=== PATIENT | female | born 1965 | race Caucasian/White ===

== ENCOUNTER 2017-04-21 18:50 | Emergency (ER) | payer OTHER ==
[2017-04-21 19:33] VITALS: BP 128/58; PULSE 87; RESP 20; TEMP 98.3
[2017-04-21] MEDS ORDERED: AMOXIC-POT CLAV 875MG STARTER 2 EACH TABLET PO STA (20:17)
[2017-04-21] MEDS ORDERED: CIPROFLOXACIN 0.3% OPHTH SOLN 5 ML BTL RIGHT EAR STA (20:22)
--- NOTE | 2017-04-21 20:23 | ED ---
ENT HPI - General Chief complaint: ENT Stated complaint: Blood in ear Time Seen by Provider: 04/21/17 19:57 Source: patient, RN notes reviewed, old records reviewed Mode of arrival: ambulatory Limitations: no limitations - History of Present Illness Initial comments: This patient is a 51-year-old female presents with one day of blood coming from her right ear canal. She reports a few days prior she was having your fullness in pain. You were so she has chronic your infections. She states that she felt a popping sensation in her ear and has noticed the drainage. Patient reports that she has ringing in her ears. She denies any trauma.Any fever or chills, she denies any neck pain, photophobia, chest pain, shortness of breath, nausea or vomiting. - Related Data Previous Rx's Medication Instructions Recorded Amoxic-Pot Clav 875-125Mg 1 tab PO Q12HR #20 tablet 04/21/17 [Augmentin 875-125] Ciprofloxacin Ophth Soln [Cipro 10 drops RIGHT EAR BID #1 bottle 04/21/17 Ophth Soln] Allergies Allergy/AdvReac Type Severity Reaction Status Date / Time No Known Allergies Allergy Verified 04/21/17 19:33 Review of Systems ROS Statement: Those systems with pertinent positive or pertinent negative responses have been documented in the HPI. ROS Other: All systems not noted in ROS Statement are negative. Past Medical History Additional Past Medical History / Comment(s): ovarian cyst Past Surgical History: Hysterectomy Past Psychological History: No Psychological Hx Reported Smoking Status: Current every day smoker Past Alcohol Use History: None Reported Past Drug Use History: None Reported General Exam - General Exam Comments Initial Comments: This is an alert and oriented, well appearing 51 year old female. No distress. Limitations: no limitations General appearance: alert, in no apparent distress Head exam: Present: atraumatic, normocephalic, normal inspection ENT exam: Present: normal exam, mucous membranes moist. Absent: TM's normal bilaterally (Patient has blood in right ear canal. Evidence of TM perforation. ) Neck exam: Present: normal inspection. Absent: tenderness, meningismus, lymphadenopathy Respiratory exam: Present: normal lung sounds bilaterally. Absent: respiratory distress, wheezes, rales, rhonchi, stridor Cardiovascular Exam: Present: regular rate, normal rhythm, normal heart sounds. Absent: systolic murmur, diastolic murmur, rubs, gallop, clicks GI/Abdominal exam: Present: soft, normal bowel sounds. Absent: distended, tenderness, guarding, rebound, rigid Extremities exam: Present: normal inspection, full ROM, normal capillary refill. Absent: tenderness, pedal edema, joint swelling, calf tenderness Back exam: Present: normal inspection Neurological exam: Present: alert, oriented X3, CN II-XII intact Psychiatric exam: Present: normal affect, normal mood Skin exam: Present: warm, dry, intact, normal color. Absent: rash Course Vital Signs 04/21/17 19:29 Temperature 98.3 F Pulse Rate 87 Respiratory 20 Rate Blood Pressure 128/58 O2 Sat by Pulse 98 Oximetry Medical Decision Making - Medical Decision Making Patient is a 51-year-old female chief complaint of bleeding through her right ear canal. Patient has evidence of a perforated eardrum. She reports a few days prior she was having your full list. She has a popping sensation last night and is now at drainage and blood. She reports ringing in her ears. No meningeal signs, no fevers vital signs are all within normal limits. She has no other symptoms at this time. Patient will be started on anabiotic eardrops, as well as augmentin. Discussed she needs to follow up with ENT specialist in 24-48 hours. All questions are answered return parameters were discussed. Disposition Clinical Impression: Rupture of right tympanic membrane Disposition: HOME SELF-CARE Condition: Good Instructions: Earache (ED) Additional Instructions: Patient advised to take antibiotics as prescribed. Follow-up with your primary care doctor as well as hot mill shearer tomorrow morning. Return to the emergency department if any alarming signs or symptoms occur. Prescriptions: Amoxic-Pot Clav 875-125Mg [Augmentin 875-125] 1 tab PO Q12HR #20 tablet Ciprofloxacin Ophth Soln [Cipro Ophth Soln] 10 drops RIGHT EAR BID #1 bottle Referrals: None,Stated [Primary Care Provider] - 1-2 days Perez Burks MD [STAFF PHYSICIAN] - 1-2 days Time of Disposition: 20:20
== END 2017-04-21 21:05 | disposition home or self-care (01) ==
LOC: EC 18:50
DX: H72.91 Unspecified perforation of tympanic membrane, right ear (principal); F17.200 Nicotine dependence, unspecified, uncomplicated
CPT/HCPCS: 99283

== ENCOUNTER 2024-05-08 19:07 | Observation (INO) | payer BC ==
--- NOTE | 2024-05-08 19:33 | ED ---
Psych HPI - General Source: patient, family, RN notes reviewed Mode of arrival: ambulatory Limitations: no limitations - History of Present Illness MD Complaint: suicidal ideation <Wilfredo Guillory - Last Filed: 05/08/24 20:08> <Simon Carrillo - Last Filed: 05/09/24 06:37> - General Source: patient, family, RN notes reviewed, old records reviewed <Santana Ferraro - Last Filed: 05/09/24 15:29> - General Stated Complaint: Mental Health Time Seen by Provider: 05/08/24 19:18 - History of Present Illness Initial Comments: Quick note: This is a 58-year-old female with history of depression presenting for suicidal ideation x 6 days. Patient endorses increased number of life stressors, causing her to feel overwhelmed. Patient called family notifying them of her situation. Patient states she has plan to slit her wrist. Patient denies attempted overdose of her medications. [facility] in [place], [place] has a list of her medications which they will fax over upon request. Denies homicidal ideation. (Wilfredo Guillory) Patient is a 58-year-old female presents emergency department for suicidal ideations, psychiatric evaluation. States since last she has been feeling more suicidal secondary to stressors at home. Plan was to slit her wrist with a razor blade. Has a history of headaches, COPD. Denies any fevers, chills but does endorse a cough for 1 week. No known sick contacts. No nausea or vomiting. No diarrhea. Presents for further evaluation at this time. Has no other acute complaints. Originally seen as a quick note. I originally evaluated patient in the waiting room and then and room 14. (Santana Ferraro) - Related Data Home Medications Medication Instructions Recorded Confirmed Atorvastatin [Lipitor] 20 mg PO DAILY 05/08/24 05/08/24 Cetirizine HCl [Zyrtec] 10 mg PO DAILY 05/08/24 05/08/24 EPINEPHrine (Auto Inject) [Epipen] 0.3 mg IM ONCE PRN 05/08/24 05/08/24 Fluticasone/Umeclidin/Vilanter 1 puff INHALATION RT-DAILY 05/08/24 05/08/24 [Trelegy Ellipta 200-62.5-25] Magnesium 250 mg PO HS 05/08/24 05/08/24 Pantoprazole [Protonix] 40 mg PO DAILY 05/08/24 05/08/24 Rizatriptan Benzoate 10 mg PO BID PRN 05/08/24 05/08/24 Topiramate 50 mg PO BID 05/08/24 05/08/24 Allergies Allergy/AdvReac Type Severity Reaction Status Date / Time bee venom protein (honey bee) Allergy Anaphylaxis Verified 05/08/24 20:46 metoclopramide [From Reglan] Allergy Unknown Verified 05/08/24 20:46 peanut Allergy Anaphylaxis Verified 05/08/24 20:46 Review of Systems ROS Other: All systems not noted in ROS Statement are negative. <Wilfredo Guillory - Last Filed: 05/08/24 20:08> ROS Other: All systems not noted in ROS Statement are negative. <Simon Carrillo - Last Filed: 05/09/24 06:37> ROS Other: All systems not noted in ROS Statement are negative. <Santana Ferraro - Last Filed: 05/09/24 15:29> ROS Statement: Those systems with pertinent positive or pertinent negative responses have been documented in the HPI. Review of Systems: CONST: Denies fever EYES: Denies blurry vision ENT: Denies nasal congestion C/V: Denies Chest pain RESP: Denies shortness of breath GI: Denies abdominal pain : Denies dysuria SKIN: Denies rash. MSK: Denies joint pain. NEURO: Denies headache (Santana Ferraro) Past Medical History Additional Past Medical History / Comment(s): ovarian cyst Past Surgical History: Hysterectomy Past Psychological History: No Psychological Hx Reported Past Alcohol Use History: None Reported Past Drug Use History: None Reported <Wilfredo Guillory - Last Filed: 05/08/24 20:08> General Exam General appearance: alert, in no apparent distress Head exam: Present: atraumatic, normocephalic, normal inspection Eye exam: Present: normal appearance, PERRL, EOMI. Absent: scleral icterus, conjunctival injection, periorbital swelling ENT exam: Present: normal exam, mucous membranes moist Neck exam: Present: normal inspection. Absent: tenderness, meningismus, lymphadenopathy Respiratory exam: Present: normal lung sounds bilaterally. Absent: respiratory distress, wheezes, rales, rhonchi, stridor Cardiovascular Exam: Present: regular rate, normal rhythm, normal heart sounds. Absent: systolic murmur, diastolic murmur, rubs, gallop, clicks GI/Abdominal exam: Present: soft, normal bowel sounds. Absent: distended, tenderness, guarding, rebound, rigid Extremities exam: Present: normal inspection, full ROM, normal capillary refill. Absent: tenderness, pedal edema, joint swelling, calf tenderness Back exam: Present: normal inspection Neurological exam: Present: alert, oriented X3, CN II-XII intact Psychiatric exam: Present: normal affect, normal mood Skin exam: Present: warm, dry, intact, normal color. Absent: rash <Wilfredo Guilolry - Last Filed: 05/08/24 20:08> <Santana Ferraro - Last Filed: 05/09/24 15:29> - General Exam Comments Initial Comments: Visual Physical Exam Vital signs reviewed General: Well-appearing, nontoxic, no acute distress. Head: Normocephalic, atraumatic Eyes: PERRLA, EOMI ENT: Airway patent Chest: Nonlabored breathing Skin: No visual rash, normal skin tone Neuro: Alert and oriented 3 Musculoskeletal: No gross abnormalities (Wilfredo Guillory) General: Appears in no acute distress. HEAD: Normal with no signs of head trauma. EYES: EOMI ENT: Hearing grossly intact, normal oropharynx. RESPIRATORY: Clear breath sounds bilaterally. No hypoxia. No wheezing. C/V: Regular rate and rhythm. S1 and S2 auscultated, peripheral pulses 2+ and intact throughout ABD: Abd is soft, nontender, nondistended EXT: No obvious deformity SKIN: No rashes or lesions observed on exposed skin. NEURO: Alert and oriented x 4. (Santana Ferraro) Course Vital Signs 05/08/24 05/09/24 05/09/24 19:32 06:56 08:39 Temperature 98.5 F 98.2 F Pulse Rate 92 88 88 Respiratory 18 18 18 Rate Blood Pressure 108/70 110/62 99/59 O2 Sat by Pulse 98 98 96 Oximetry 05/09/24 15:27 Temperature 98.7 F Pulse Rate 84 Respiratory 18 Rate Blood Pressure 118/75 O2 Sat by Pulse 98 Oximetry Medical Decision Making <Wilfredo Guillory - Last Filed: 05/08/24 20:08> - Lab Data Result diagrams: 05/08/24 20:45 05/08/24 20:45 <Simon Carrillo - Last Filed: 05/09/24 06:37> - Lab Data Result diagrams: 05/08/24 20:45 05/08/24 20:45 - EKG Data -: EKG Interpreted by Me <Santana Ferraro - Last Filed: 05/09/24 15:29> - Medical Decision Making I completed the quick note portion of this chart signed MAREN Rabago (Wilfredo Guillory) Was pt. sent in by a medical professional or institution ([facility], [facility], urgent care, hospital, or [facility]...) When possible be specific @ -No Did you speak to anyone other than the patient for history (EMS, parent, family, police, friend...)? What history was obtained from this source @ -Spoke with family who endorses patient's story. Did you review nursing and triage notes (agree or disagree)? Why? @ -I reviewed and agree with nursing and triage notes Were old charts reviewed (outside hosp., previous admission, EMS record, old EKG, old radiological studies, urgent care reports/EKG's, [facility] records)? Report findings @ -No old charts were reviewed Differential Diagnosis (chest pain, altered mental status, abdominal pain women, abdominal pain men, vaginal bleeding, weakness, fever, dyspnea, syncope, headache, dizziness, GI bleed, back pain, seizure, CVA, palpatations, mental health, musculoskeletal)? @ -Differential Mental Health Depression, anxiety, bipolar, psychosis, schizophrenia, borderline personality, situational depression, adjustment disorder, behavioral disorder, brain tumor, malingering, substance abuse, encephalopathy, medication reaction, dementia, hypothyroidism, degenerative neurologic disorder, lupus.... This is not meant to be all-inclusive list EKG interpreted by me (3pts min.). @ -As above X-rays interpreted by me (1pt min.). @ -None done CT interpreted by me (1pt min.). @ -None done U/S interpreted by me (1pt. min.). @ -None done What testing was considered but not performed or refused? (CT, X-rays, U/S, labs)? Why? @ -None What meds were considered but not given or refused? Why? @ -None Did you discuss the management of the patient with other professionals (professionals i.e. , PA, SKIDDER LOADER, lab, RT, psych nurse, social media manager, optical instrument assembly supervisor, teacher, unclaimed property officer, director of casework services)? Give summary @ -EPS notified of the consult Was smoking cessation discussed for >3mins.? @ -No Was critical care preformed (if so, how long)? @ -No Were there social determinants of health that impacted care today? How? (Homelessness, low income, unemployed, alcoholism, drug addiction, transportation, low edu. Level, literacy, decrease access to med. care, residential, rehab)? @ -No Was there de-escalation of care discussed even if they declined (Discuss DNR or withdrawal of care, Hospice)? DNR status @ -No What co-morbidities impacted this encounter? (DM, HTN, Smoking, COPD, CAD, Cancer, CVA, ARF, Chemo, Hep., AIDS, mental health diagnosis, sleep apnea, morbid obesity)? @ -None Was patient admitted / discharged? Hospital course, mention meds given and route, prescriptions, significant lab abnormalities, going to OR and other pertinent info. @ -Patient presents emergency department for mental health evaluation. Patient is suicidal. Suicide precautions placed. We have obtained basic labs and screening EKG to the patient's age. She was in agreement this plan. Vital signs are within acceptable limits. Laboratory studies remarkable for positive influenza test. Negative COVID. Alcohol level is undetectable. UDS unremarkable. EKG shows no signs of acute ischemia. At this time, patient is medically cleared for evaluation by psychiatry. Disposition is pending psychiatric evaluation. EPS notified the consult. Patient is in room 14 at this time. Patient and family in agreement this plan. Patient evaluated by EPS and determined that she does meet inpatient criteria, however as the patient is influenza positive she requires transfer to another facility. Patient petitioned by EPS and clinical certificate completed by myself. Patient awaiting transfer. It appears patient after my shift was eventually, rather than be transferred to inpatient psychiatry, was admitted to the medical admission to our hospital with psychiatric consult. Undiagnosed new problem with uncertain prognosis? @ -No Drug Therapy requiring intensive monitoring for toxicity (Heparin, Nitro, Insulin, Cardizem)? @ -No Were any procedures done? @ -No Diagnosis/symptom? @ -Suicidal ideation with plan, influenza A positive Acute, or Chronic, or Acute on Chronic? @ -Acute Uncomplicated (without systemic symptoms) or Complicated (systemic symptoms)? @ -Complicated Side effects of treatment? @ -None Exacerbation, Progression, or Severe Exacerbation] @ -No Poses a threat to life or bodily function? @ -Potentially, yes (Santana Ferraro) - Lab Data Lab Results 05/08/24 05/08/24 05/08/24 Range/Units 19:39 19:39 19:39 WBC (3.8-10.6) k/uL RBC (3.80-5.40) m/uL Hgb (11.4-16.0) gm/dL Hct (34.0-46.0) % MCV (80.0-100.0) fL MCH (25.0-35.0) pg MCHC (31.0-37.0) g/dL RDW (11.5-15.5) % Plt Count (150-450) k/uL MPV Neutrophils % % Lymphocytes % % Monocytes % % Eosinophils % % Basophils % % Neutrophils # (1.3-7.7) k/uL Lymphocytes # (1.0-4.8) k/uL Monocytes # (0-1.0) k/uL Eosinophils # (0-0.7) k/uL Basophils # (0-0.2) k/uL Sodium (137-145) mmol/L Potassium (3.5-5.1) mmol/L Chloride (98-107) mmol/L Carbon Dioxide (22-30) mmol/L Anion Gap mmol/L BUN (7-17) mg/dL Creatinine (0.52-1.04) mg/dL Est GFR (CKD-EPI)AfAm (>60 ml/min/1.73 sqM) Est GFR (CKD-EPI)NonAf (>60 ml/min/1.73 sqM) Glucose (74-99) mg/dL Calcium (8.4-10.2) mg/dL Total Bilirubin (0.2-1.3) mg/dL AST (14-36) U/L ALT (4-34) U/L Alkaline Phosphatase (38-126) U/L Total Protein (6.3-8.2) g/dL Albumin (3.5-5.0) g/dL Urine Color Yellow Urine Appearance Cloudy H (Clear) Urine pH 5.5 (5.0-8.0) Ur Specific [place] 1.017 (1.001-1.035) Urine Protein Negative (Negative) Urine Glucose (UA) Negative (Negative) Urine Ketones Negative (Negative) Urine Blood Negative (Negative) Urine Nitrite Negative (Negative) Urine Bilirubin Negative (Negative) Urine Urobilinogen <2.0 (<2.0) mg/dL Ur Leukocyte Esterase Negative (Negative) Urine WBC 2 (0-5) /hpf Ur Squamous Epith Cells 5 H (0-4) /hpf Calcium Oxalate Crystal Many H (None) /hpf Hyaline Casts 6 H (0-2) /lpf Urine Mucus Many H (None) /hpf Urine Opiates Screen Not Detected (NotDetected) Ur Oxycodone Screen Not Detected (NotDetected) Urine Methadone Screen Not Detected (NotDetected) Ur Barbiturates Screen Not Detected (NotDetected) U Tricyclic Antidepress Not Detected (NotDetected) Ur Phencyclidine Scrn Not Detected (NotDetected) Ur Amphetamines Screen Not Detected (NotDetected) U Methamphetamines Scrn Not Detected (NotDetected) U Benzodiazepines Scrn Not Detected (NotDetected) Urine Cocaine Screen Not Detected (NotDetected) U Marijuana (THC) Screen Not Detected (NotDetected) Serum Alcohol mg/dL Influenza Type A (PCR) Detected A (Not Detectd) Influenza Type B (PCR) Not Detected (Not Detectd) RSV (PCR) Not Detected (Not Detectd) SARS-CoV-2 (PCR) Not Detected (Not Detectd) 05/08/24 05/08/24 Range/Units 20:45 20:45 WBC 4.1 (3.8-10.6) k/uL RBC 4.66 (3.80-5.40) m/uL Hgb 14.0 (11.4-16.0) gm/dL Hct 43.8 (34.0-46.0) % MCV 94.0 (80.0-100.0) fL MCH 30.1 (25.0-35.0) pg MCHC 32.1 (31.0-37.0) g/dL RDW 12.9 (11.5-15.5) % Plt Count 236 (150-450) k/uL MPV 8.8 Neutrophils % 51 % Lymphocytes % 40 % Monocytes % 7 % Eosinophils % 1 % Basophils % 0 % Neutrophils # 2.1 (1.3-7.7) k/uL Lymphocytes # 1.6 (1.0-4.8) k/uL Monocytes # 0.3 (0-1.0) k/uL Eosinophils # 0.0 (0-0.7) k/uL Basophils # 0.0 (0-0.2) k/uL Sodium 141 (137-145) mmol/L Potassium 3.5 (3.5-5.1) mmol/L Chloride 105 (98-107) mmol/L Carbon Dioxide 24 (22-30) mmol/L Anion Gap 12 mmol/L BUN 8 (7-17) mg/dL Creatinine 0.99 (0.52-1.04) mg/dL Est GFR (CKD-EPI)AfAm 72 (>60 ml/min/1.73 sqM) Est GFR (CKD-EPI)NonAf 62 (>60 ml/min/1.73 sqM) Glucose 106 H (74-99) mg/dL Calcium 9.4 (8.4-10.2) mg/dL Total Bilirubin 0.5 (0.2-1.3) mg/dL AST 32 (14-36) U/L ALT 22 (4-34) U/L Alkaline Phosphatase 59 (38-126) U/L Total Protein 6.8 (6.3-8.2) g/dL Albumin 4.2 (3.5-5.0) g/dL Urine Color Urine Appearance (Clear) Urine pH (5.0-8.0) Ur Specific [place] (1.001-1.035) Urine Protein (Negative) Urine Glucose (UA) (Negative) Urine Ketones (Negative) Urine Blood (Negative) Urine Nitrite (Negative) Urine Bilirubin (Negative) Urine Urobilinogen (<2.0) mg/dL Ur Leukocyte Esterase (Negative) Urine WBC (0-5) /hpf Ur Squamous Epith Cells (0-4) /hpf Calcium Oxalate Crystal (None) /hpf Hyaline Casts (0-2) /lpf Urine Mucus (None) /hpf Urine Opiates Screen (NotDetected) Ur Oxycodone Screen (NotDetected) Urine Methadone Screen (NotDetected) Ur Barbiturates Screen (NotDetected) U Tricyclic Antidepress (NotDetected) Ur Phencyclidine Scrn (NotDetected) Ur Amphetamines Screen (NotDetected) U Methamphetamines Scrn (NotDetected) U Benzodiazepines Scrn (NotDetected) Urine Cocaine Screen (NotDetected) U Marijuana (THC) Screen (NotDetected) Serum Alcohol <10 mg/dL Influenza Type A (PCR) (Not Detectd) Influenza Type B (PCR) (Not Detectd) RSV (PCR) (Not Detectd) SARS-CoV-2 (PCR) (Not Detectd) - EKG Data EKG Comments: 12-lead Electrocardiogram Interpretation Note EKG was reviewed and interpreted by myself. 12-lead ECG performed at 2044 is interpreted by me as revealing normal sinus rhythm at a rate of 96 beats per minute. [place] is normal. LA interval is 130 ms, QRS duration 79 ms, QTc is 3 to 97 ms.. There were no ST or T wave abnormalities to suggest myocardial ischemia or injury. R wave progression across the precordium was satisfactory. By my interpretation this EKG is non-diagnostic for acute ischemia. (Santana Ferraro) Disposition <Wilfredo Guillory - Last Filed: 05/08/24 20:08> Is patient prescribed a controlled substance at d/c from ED?: No Time of Disposition: 06:45 <Simon Carrillo - Last Filed: 05/09/24 06:37> <Santana Ferraro - Last Filed: 05/09/24 15:29> Clinical Impression: Suicidal ideation, Influenza A Disposition: ADMITTED IP TO THIS HOSP Condition: Fair
[2024-05-08 20:54] LABS: Influenza A Detected (Not Detectd); Influenza B Not Detected (Not Detectd); RSV Not Detected (Not Detectd)
[2024-05-08 21:04] LABS: Basophils % (A) 0 %; Eosinophils % (A) 1 %; HCT 43.8 % (34.0-46.0); Lymphocytes # (A) 1.6 k/uL (1.0-4.8); Lymphocytes % (A) 40 %; MCH 30.1 pg (25.0-35.0); MCHC 32.1 g/dL (31.0-37.0); Mean Platelet Volume 8.8; Monocytes # (A) 0.3 k/uL (0-1.0); Monocytes % (A) 7 %; Neutrophils # (A) 2.1 k/uL (1.3-7.7); Neutrophils % (A) 51 %; Platelet Count 236 k/uL (150-450); RBC 4.66 m/uL (3.80-5.40); RDW 12.9 % (11.5-15.5); WBC 4.1 k/uL (3.8-10.6)
[2024-05-08 21:06] LABS: Amphetamine Screen,Urine Not Detected (NotDetected); Barbiturate Screen,Urine Not Detected (NotDetected); Benzodiazepines Screen,Urine Not Detected (NotDetected); Cocaine Screen,Urine Not Detected (NotDetected); Methadone Screen, Urine Not Detected (NotDetected); Opiate Screen,Urine Not Detected (NotDetected); Oxycodone Screen, Urine Not Detected (NotDetected); Phencyclidine Screen,Urine Not Detected (NotDetected); Tricyclic Antidepressant,Urine Not Detected (NotDetected); Urn Cannabinoid Scrn Not Detected (NotDetected)
[2024-05-08 21:09] LABS: ALT 22 U/L (4-34); AST 32 U/L (14-36); African American GFR (CKD) 72 (>60 ml/min/1.73 sqM); Albumin 4.2 g/dL (3.5-5.0); Alcohol <10 mg/dL; Alkaline Phosphatase 59 U/L (38-126); Anion Gap 12 mmol/L; Blood Urea Nitrogen 8 mg/dL (7-17); Calcium 9.4 mg/dL (8.4-10.2); Carbon Dioxide 24 mmol/L (22-30); Chloride 105 mmol/L (98-107); Glucose 106 mg/dL (74-99); Non-African American GFR(CKD) 62 (>60 ml/min/1.73 sqM); Potassium 3.5 mmol/L (3.5-5.1); Sodium 141 mmol/L (137-145); Total Bilirubin 0.5 mg/dL (0.2-1.3); Total Protein 6.8 g/dL (6.3-8.2)
[2024-05-08] MEDS: TOPIRAMATE 25 MG TAB PO STA (21:51)
[2024-05-08] MEDS ORDERED: SUMAtriptan succinate 50 MG TAB PO PRN (23:17)
[2024-05-09 00:13] LABS: Appearance,Urine Cloudy (Clear); Bilirubin,Urine Negative (Negative); Blood,Urine Negative (Negative); Calcium Oxalate Crystals,Urine Many /hpf; Color,Urine Yellow; Glucose,Urine (UA) Negative (Negative); Hyaline Casts,Urine 6 /lpf (0-2); Ketones,Urine Negative (Negative); Leukocyte Esterase,Urine Negative (Negative); Mucus,Urine Many /hpf; Nitrite,Urine Negative (Negative); PH, Urine 5.5 (5.0-8.0); Protein,Urine Negative (Negative); Specific Gravity,Urine 1.017 (1.001-1.035); Squamous Epithelial Cell,Urine 5 /hpf (0-4); Urobilinogen,Urine <2.0 mg/dL (<2.0); WBC,Urine 2 /hpf (0-5)
[2024-05-09] MEDS ORDERED: MORPHINE SULFATE 4 MG/ML SYRINGE IV PRN (06:35)
[2024-05-09] MEDS ORDERED: NALOXONE 0.4 MG/ML 1 ML VIAL IV PRN (06:35)
[2024-05-09] MEDS: SODIUM CHLORIDE 0.9% 1,000 ML IV SCH (06:46)
[2024-05-09] MEDS ORDERED: PANTOPRAZOLE 40 MG TABLET PO SCH (07:30)
[2024-05-09] MEDS: ATORVASTATIN 20 MG TAB PO SCH (08:33)
[2024-05-09] MEDS: TOPIRAMATE 25 MG TAB PO SCH (08:33)
[2024-05-09] MEDS: LORATADINE 10 MG TAB PO SCH (08:33)
[2024-05-09] MEDS: OSELTAMIVIR 30 MG CAP PO SCH (08:34)
[2024-05-09] MEDS ORDERED: PANTOPRAZOLE 40 MG/10 ML VIAL IV SCH (09:00)
--- NOTE | 2024-05-09 09:23 | P.HPIM ---
History of Present Illness H&P Date: 05/09/24 Patient is a 58-year-old female with history of COPD, dyslipidemia, GERD, migraine presenting with suicidal ideations. She claims that over the last couple of weeks she has been feeling more depressed, and had a plan to suicide by cutting her lower wrist. She denies any auditory or visual hallucinations. She denies any flight of thought. She claims that she has low appetite. She has been having cough since which is slowly getting better. She denies any shortness of breath, chest pain, abdominal pain, nausea, vomiting, urinary or bowel complaints. She is a current half pack daily smoker. Denies any alcohol use or illicit drug use. In the ED, temperature was 98.5, pulse 92, respiratory rate 18, blood pressure 108/70, saturating at 98% on room air. WBC 4.1, hemoglobin 14, creatinine 0.99, urinalysis negative for nitrates and leukocyte esterase, serum alcohol negative, urine toxicology negative, influenza A positive. EKG independently interpreted, shows sinus rhythm with poor R wave progression and some nonspecific ST-T wave changes. Pertinent positives and negatives as discussed in HPI, a complete review of systems was performed and all other systems are negative. Patient seen and examined at bedside. Vital signs reviewed General: nontoxic, no distress, appears at stated age Derm: warm, dry Head: atraumatic, normocephalic, symmetric Eyes: EOMI, no lid lag, anicteric sclera, pupils equal round reactive to light ENT: Nose and ears atraumatic Neck: No thyromegaly, supple Mouth: no lip lesion, mucus membranes moist Cardiovascular: S1S2 reg, no murmur, no edema Lungs: clear to auscultation bilateral, no rhonchi, no rales, no wheeze, no accessory muscle use Abdominal: soft, nontender to palpation, no guarding, no appreciable organomegaly Ext: no gross muscle atrophy, muscle strength muscle strength 5 out of 5 in all 4 extremities, no contractures Neuro: CN II-XII grossly intact Psych: Alert, oriented, depressed affect Assessment/Plan: Active: Influenza A infection -On room air - started on Tamiflu 30 every 12 hours for 5 days COPD, not in exacerbation -Continue Symbicort twice daily, Spiriva daily Dyslipidemia -Continue atorvastatin 20 daily Migraine -Continue topiramate 50 twice daily, Imitrex as needed GERD -Continue pantoprazole 40 daily Suicidal ideations Depression -Psychiatry consulted -Sitter at bedside -Suicide precautions The patient is admitted with an anticipated less than 2 midnight stay as observation status for evaluation of depression. Surrogate decision-maker: Sibling CODE STATUS: Full code DVT prophylaxis: Patient ambulatory Anticipated discharge date: Pending clinical course Anticipated discharge place: Pending clinical course A total of 55 minutes was spent on the care of this complex patient more than 50% of the time was spent in counseling and care coordination. Past Medical History Additional Past Medical History / Comment(s): ovarian cyst Past Surgical History: Hysterectomy Additional Past Surgical History / Comment(s): bladder suspension Past Psychological History: No Psychological Hx Reported Past Alcohol Use History: None Reported Past Drug Use History: None Reported Medications and Allergies Home Medications Medication Instructions Recorded Confirmed Type Atorvastatin [Lipitor] 20 mg PO DAILY 05/08/24 05/08/24 History Cetirizine HCl [Zyrtec] 10 mg PO DAILY 05/08/24 05/08/24 History EPINEPHrine (Auto Inject) [Epipen] 0.3 mg IM ONCE PRN 05/08/24 05/08/24 History Fluticasone/Umeclidin/Vilanter 1 puff INHALATION RT-DAILY 05/08/24 05/08/24 History [Trelegy Ellipta 200-62.5-25] Magnesium 250 mg PO HS 05/08/24 05/08/24 History Pantoprazole [Protonix] 40 mg PO DAILY 05/08/24 05/08/24 History Rizatriptan Benzoate 10 mg PO BID PRN 05/08/24 05/08/24 History Topiramate 50 mg PO BID 05/08/24 05/08/24 History Allergies Allergy/AdvReac Type Severity Reaction Status Date / Time bee venom protein (honey bee) Allergy Anaphylaxis Verified 05/08/24 20:46 metoclopramide [From Reglan] Allergy Unknown Verified 05/08/24 20:46 peanut Allergy Anaphylaxis Verified 05/08/24 20:46 Physical Exam Vitals: Vital Signs Temp Pulse Resp BP Pulse Ox 05/09/24 08:39 98.2 F 88 18 99/59 96 05/09/24 06:56 88 18 110/62 98 05/08/24 19:32 98.5 F 92 18 108/70 98 Intake and Output 05/08/24 05/09/24 05/09/24 22:59 06:59 14:59 Other: Weight 64.864 kg Results CBC & Chem 7: 05/08/24 20:45 05/08/24 20:45 Labs: Abnormal Lab Results - Last 24 Hours (Table) 05/08/24 05/08/24 05/08/24 Range/Units 19:39 19:39 20:45 Glucose 106 H (74-99) mg/dL Urine Appearance Cloudy H (Clear) Ur Squamous Epith Cells 5 H (0-4) /hpf Calcium Oxalate Crystal Many H (None) /hpf Hyaline Casts 6 H (0-2) /lpf Urine Mucus Many H (None) /hpf Influenza Type A (PCR) Detected A (Not Detectd)
[2024-05-09] MEDS: PANTOPRAZOLE 40 MG TABLET PO SCH (09:35)
[2024-05-09] MEDS: SYMBICORT 160-4.5 MCG INHALER INHALATION SCH (12:13)
[2024-05-09] MEDS: TIOTROPIUM 2.5 MCG INHALER INHALATION SCH (12:17)
--- NOTE | 2024-05-09 13:44 | P.CN ---
Psychiatric Consult - . Consult date: 05/09/24 Consult:: 05/09/24 13:36 IDENTIFYING DATA: This patient is a 58-year-old female, recently unemployed and recently moved in with mom/sister REASON FOR REFERRAL: Psychiatry was consulted for SI HISTORY OF PRESENT ILLNESS: The patient presented to the hospital with SI. She was influenza A positive. EPS evaluation revealed, "Patient presented to ER with sister and mother. Patient presented at ER for suicidal ideation with plan to slit her wrists. Patient assessed in ER14 from [id number]. Patient assessed with sister and mother present per patient request. Patient states she came to ER after seeing her primary care physician Melodie Jane due to suicidal ideation. States she went to see her PCP for antidepressants but due to suicidal ideation with plan and intent, she was referred to ER. Patient states that she has had suicidal thoughts in the past that were minimal and easily controlled. Patient states that in the past 4 days she has had thoughts of suicide with plan and intention to act on her plan to slit her wrist or throat. Patient states that she felt like she could kill herself in her bathroom at night and no one would notice. Patient states she has been having increased stress due to her not being supportive and being controlling. 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 Patient states that she recently left her 4 days ago, states he is controlling and is not supportive of her. Patient states she has a history of being on antidepressants, unknown what medication but denies any previous inpatient mental health treatment. Patient denies any hobbies and states she has nothing to look forward to in life. Petition filed for treatment r/t patient suicidal ideation with a plan and intent." Patient seen and evaluated in her room. She reports last Tuesday having worsening suicidal ideations that led her to start thinking about cutting herself with thoughts that no one will notice or miss her if she did. She mentions on reaching out to her mother and sister who helped her eventually move out of her house and ended with them. Ongoing stressors include issues with her of 5 years including infidelity and lack of support. She mentions transitioning from part-time to full-time job however given her depressive symptoms was struggling and thus she is in between jobs at the moment. She states yesterday going to her PCP who encouraged her to come to the ED given her worsening SI with plan. She reports predominant depressive symptoms including sleep and appetite changes, low energy, concentration and anhedonia. She reports anxiety described as generalized along with racing thoughts, feeling on edge. At this time patient denies any suicidal or homicidal ideations, intent or plan. Patient denies any auditory, visual hallucinations and denies any paranoia or delusions. Patients admits to using nicotine, vaping daily and smoking 1/2 pack/day. PAST PSYCHIATRIC HISTORY: Patient has a history of depression, anxiety. Patient denies being on any psychiatric medications. She has tried Wellbutrin, Paxil, Zoloft, Ativan in the past. Patient denies any previous psychiatric hospitalizations. Patient denies any psychiatric outpatient follow-up. Patient denies any history of suicide attempts in the past. PAST MEDICAL HISTORY: Ovarian cyst. ALLERGIES: as per EMR. CHEMICAL DEPENDENCY HISTORY: as per HPI. FAMILY PSYCHIATRIC/SUBSTANCE USE HISTORY: She states her daughter was diagnosed with bipolar disorder and that her son abuses alcohol SOCIAL HISTORY: Patient is and has 3 kids however recently left her . She is currently living with her mother and sister. She completed high school however is recently unemployed. MENTAL STATUS EXAM: General Appearance: Patient appears to be stated age is alert, pleasant, and cooperative. Patient appears to have fair hygiene and grooming wearing hospital gown with fair eye contact. Behavior: Patient is calmly lying in bed without any agitated behavior. She is intermittently tearful Speech: Patient's speech is fluent and nonpressured. Mood/Affect: Patient reports their mood is "depressed", affect is congruent Suicidality/Homicidality: Patient denies having any suicidal or homicidal ideation intent or plan. Perceptions: Patient denies any visual hallucinations and denies any auditory hallucinations Though content/process: There is no evidence of any delusional thought content and thought process is linear and logical. Memory and concentration: AOX3, grossly intact for the purposes of this session. Can spell "WORLD" backwards Judgment and insight: Fair IMPRESSIONS: Major depressive disorder, recurrent, moderate Generalized anxiety disorder Nicotine dependence PLAN: -At this time patient DOES meet criteria for inpatient psychiatric admission. -Would recommend the following medication changes/additions: Start Cymbalta 30 mg daily for depression/anxiety, continue melatonin 10 mg at bedtime for insomnia. Encourage patient to consider counseling outpatient upon discharge given her psychosocial stressors -Continue 1:1 sitter for safety -Cannot leave AMA at this time. Patient will need a petition and certification if attempting to leave AMA. -cargo station worker to provide patient with outpatient mental health/psychiatry resources for appropriate follow up upon discharge -When medically stable, patient is eligible for transfer to a psych bed when available. Will in the interim continue to follow patient on the medical floor -Communicated plan to patient's nurse -Will continue to follow along -Please contact with any questions.
[2024-05-09] MEDS: DULoxetine HCL 30 MG CAPSULE.DR PO SCH (15:22)
[2024-05-09] MEDS: [UNRECOGNIZED DRUG - OTHER] PO SCH (21:06)
[2024-05-09] MEDS: MELATONIN 5 MG TABLET PO SCH (21:06)
[2024-05-10] MEDS: ONDANSETRON 4 MG/2 ML VIAL IVP PRN (03:41)
[2024-05-10 08:49] VITALS: BP 94/58; PULSE 69; TEMP 98.5
[2024-05-10 09:18] LABS: ALT 20 U/L (8-44); AST 24 U/L (13-35); Albumin 3.9 g/dL (3.8-4.9); Albumin/Globulin Ratio 1.77 Ratio (1.60-3.17); Alkaline Phosphatase 61 U/L (41-126); BUN/Creat Ratio 9.88 Ratio (12.00-20.00); Blood Urea Nitrogen 7.9 mg/dL (9.0-27.0); Calcium 8.7 mg/dL (8.7-10.3); Carbon Dioxide 18.1 mmol/L (21.6-31.8); Chloride 112 mmol/L (96-109); Globulin 2.2 g/dL (1.6-3.3); Glucose 102 mg/dL (70-110); Phosphorus 3.7 mg/dL (2.4-5.1); Potassium 3.8 mmol/L (3.5-5.5); Sodium 142 mmol/L (135-145); Total Bilirubin 0.3 mg/dL (0.3-1.2); Total Protein 6.1 g/dL (6.2-8.2)
[2024-05-10 09:21] LABS: Basophils # (A) 0.01 X 10*3/uL (0.00-0.10); Basophils % (A) 0.2 %; Eosinophils # (A) 0.09 X 10*3/uL (0.04-0.35); Eosinophils % (A) 1.8 %; HCT 41.3 % (37.2-46.3); HGB 13.5 g/dL (12.0-15.0); Lymphocytes # (A) 1.96 X 10*3/uL (0.90-5.00); Lymphocytes % (A) 38.6 %; MCH 30.9 pg (27.0-32.0); MCHC 32.7 g/dL (32.0-37.0); MCV 94.5 FL (80.0-97.0); Mean Platelet Volume 11.3 FL (9.5-12.2); Monocytes # (A) 0.38 X 10*3/uL (0.20-1.00); Monocytes % (A) 7.5 %; NRBC Per 100 WBC 0 X 10*3/uL (0.00-0.01); Neutrophils # (A) 2.63 X 10*3/uL (1.80-7.70); Neutrophils % (A) 51.7 %; Platelet Count 229 X 10*3/uL (140-440); RBC 4.37 X 10*6/uL (4.10-5.20); RDW 13.1 % (11.5-14.5); WBC 5.08 X 10*3/uL (4.50-10.00)
[2024-05-10 11:12] VITALS: RESP 18
--- NOTE | 2024-05-10 12:05 | P.DS ---
Providers Date of admission: 05/09/24 06:37 Expected date of discharge: 05/10/24 Attending physician: Margarita Wong MD Consults: 05/09/24 06:35 Consult Physician Routine Consulting Provider: Janie Jane Consult Reason/Comments: SI Do you want consulting provider notified?: Yes Primary care physician: Physician Nonstaff Hospital Course: Discharge Diagnosis: Influenza A infection COPD, not in exacerbation Dyslipidemia Migraine GERD Suicidal ideations Depression [facility] Hospital Course: Patient is a 58-year-old female with history of COPD, dyslipidemia, GERD, migraine presenting with suicidal ideations. She claims that over the last couple of weeks she has been feeling more depressed, and had a plan to suicide by cutting her lower wrist. She denies any auditory or visual hallucinations. She denies any flight of thought. She claims that she has low appetite. She has been having cough since which is slowly getting better. She denies any shortness of breath, chest pain, abdominal pain, nausea, vomiting, urinary or bowel complaints. She is a current half pack daily smoker. Denies any alcohol use or illicit drug use. In the ED, temperature was 98.5, pulse 92, respiratory rate 18, blood pressure 108/70, saturating at 98% on room air. WBC 4.1, hemoglobin 14, creatinine 0.99, urinalysis negative for nitrates and leukocyte esterase, serum alcohol negative, urine toxicology negative, influenza A positive. EKG independently interpreted, shows sinus rhythm with poor R wave progression and some nonspecific ST-T wave changes. Patient was evaluated by psychiatry needs inpatient psychiatry. Her symptom onset was last which puts her on day 8 since the onset of symptoms. She is medically optimized for discharge to inpatient psychiatry. Patient seen and examined at bedside. Vital signs reviewed and stable. General: Nontoxic, no distress, appears at stated age Derm: Warm, dry Head: Atraumatic, normocephalic, symmetric Eyes: EOMI, no lid lag, anicteric sclera Mouth: No lip lesion, mucus membranes moist Cardiovascular: S1S2 reg, no murmur Lungs: CTA bilateral, no rhonchi, no rales, no accessory muscle use Abdominal: Soft, nontender to palpation, no guarding, no appreciable organomegaly Ext: No gross muscle atrophy, no edema, no contractures Neuro: CN II-XI grossly intact, no focal neuro deficits Psych: Alert, oriented, appropriate affect A total of 36 minutes of time were spent preparing this complex discharge summary. Patient was discharged on 05/10/2024 at 955. Patient Condition at Discharge: Stable Plan - Discharge Summary New Discharge Prescriptions: New DULoxetine HCL [Cymbalta] 30 mg PO DAILY cap Melatonin 10 mg PO HS tab Oseltamivir [Tamiflu] 30 mg PO Q12HR #8 cap Continue Rizatriptan Benzoate 10 mg PO BID PRN PRN Reason: Migraine Headache Atorvastatin [Lipitor] 20 mg PO DAILY Magnesium 250 mg PO HS Topiramate 50 mg PO BID Pantoprazole [Protonix] 40 mg PO DAILY Fluticasone/Umeclidin/Vilanter [Trelegy Ellipta 200-62.5-25] 1 puff INHALATION RT-DAILY Cetirizine HCl [Zyrtec] 10 mg PO DAILY EPINEPHrine (Auto Inject) [Epipen] 0.3 mg IM ONCE PRN PRN Reason: Anaphylaxis Discharge Medication List Atorvastatin [Lipitor] 20 mg PO DAILY 05/08/24 [History] Cetirizine HCl [Zyrtec] 10 mg PO DAILY 05/08/24 [History] EPINEPHrine (Auto Inject) [Epipen] 0.3 mg IM ONCE PRN 05/08/24 [History] Fluticasone/Umeclidin/Vilanter [Trelegy Ellipta 200-62.5-25] 1 puff INHALATION RT-DAILY 05/08/24 [History] Magnesium 250 mg PO HS 05/08/24 [History] Pantoprazole [Protonix] 40 mg PO DAILY 05/08/24 [History] Rizatriptan Benzoate 10 mg PO BID PRN 05/08/24 [History] Topiramate 50 mg PO BID 05/08/24 [History] DULoxetine HCL [Cymbalta] 30 mg PO DAILY cap 05/10/24 [Rx] Melatonin 10 mg PO HS tab 05/10/24 [Rx] Oseltamivir [Tamiflu] 30 mg PO Q12HR #8 cap 05/10/24 [Rx] Follow up Appointment(s)/Referral(s): Nonstaff,Physician [Primary Care Provider] - 1-2 days Discharge Disposition: TRANSFER TO PSYCH HOSP/UNIT
== END 2024-05-10 12:32 ==
LOC: EC 19:07 → 6NMEDSUR 05-09 06:37
PROVIDERS: ADMIT Internal Medicine; ATTEND Internal Medicine
DX: R45.851 Suicidal ideations (principal); J10.1 Influenza due to other identified influenza virus with other respiratory manifestations; J44.9 Chronic obstructive pulmonary disease, unspecified; F33.1 Major depressive disorder, recurrent, moderate; F17.210 Nicotine dependence, cigarettes, uncomplicated; F17.290 Nicotine dependence, other tobacco product, uncomplicated; F41.1 Generalized anxiety disorder; G43.909 Migraine, unspecified, not intractable, without status migrainosus; E78.5 Hyperlipidemia, unspecified; K21.9 Gastro-esophageal reflux disease without esophagitis; Z79.899 Other long term (current) drug therapy; Z88.8 Allergy status to other drugs, medicaments and biological substances
CPT/HCPCS: 96374; 82075; 99285; 36415; 94640 ×4; 93005; 80053 ×2; 83735; 84100; 85025 ×2; 81001; 80306; 80320; 87636; G0378 ×2; J2405

== ENCOUNTER 2024-05-10 09:48 | Inpatient (IN) | payer BC ==
[2024-05-10] MEDS ORDERED: hydrOXYzine HCL 50 MG/ML 1 ML VIAL IM PRN (09:50)
[2024-05-10] MEDS ORDERED: MAG HYDROX/AL HYDROX/SIMETH 355 ML BOTTLE PO PRN (09:50)
[2024-05-10] MEDS ORDERED: MAGNESIUM HYDROXIDE 2,400 MG/30 ML CUP PO PRN (09:50)
[2024-05-10] MEDS ORDERED: ACETAMINOPHEN TAB 325 MG TAB PO PRN (09:50)
[2024-05-10] MEDS ORDERED: IBUPROFEN 600 MG TAB PO PRN (09:50)
[2024-05-10] MEDS ORDERED: OLANZapine 5 MG TAB PO PRN (09:50)
[2024-05-10] MEDS ORDERED: OLANZapine 10 MG VIAL IM PRN (09:50)
[2024-05-10] MEDS ORDERED: hydrOXYzine HCL 25 MG TAB PO PRN (09:50)
[2024-05-10] MEDS ORDERED: ONDANSETRON ODT 4 MG TAB PO PRN (13:44)
--- NOTE | 2024-05-10 14:19 | P.HP ---
Psychiatric H&P - . H&P Date: 05/10/24 History & Physical: Allergies Allergy/AdvReac Type Severity Reaction Status Date / Time bee venom protein (honey bee) Allergy Anaphylaxis Verified 05/08/24 20:46 metoclopramide [From Reglan] Allergy Unknown Verified 05/08/24 20:46 peanut Allergy Anaphylaxis Verified 05/08/24 20:46 Intake & Output 05/09/24 05/10/24 05/10/24 18:59 06:59 18:59 Weight 65 kg 05/10/24 12:50 IDENTIFYING DATA: Patient is a 58-year-old female, recently unemployed and recently moved in with sister/mom CHIEF COMPLAINT: SI HPI: Patient presented to the hospital with suicidal ideations. Electrical Line Mechanic saw patient yesterday as a consult and the note is as follows, "The patient presented to the hospital with SI. She was influenza A positive. EPS evaluation revealed, "Patient presented to ER with sister and mother. Patient presented at ER for suicidal ideation with plan to slit her wrists. Patient assessed in ER14 from [id number]. Patient assessed with sister and mother present per patient request. Patient states she came to ER after seeing her primary care physician Melodie Jane due to suicidal ideation. States she went to see her PCP for antidepressants but due to suicidal ideation with plan and intent, she was referred to ER. Patient states that she has had suicidal thoughts in the past that were minimal and easily controlled. Patient states that in the past 4 days she has had thoughts of suicide with plan and intention to act on her plan to slit her wrist or throat. Patient states that she felt like she could kill herself in her bathroom at night and no one would notice. Patient states she has been having increased stress due to her not being supportive and being controlling. 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 Patient states that she recently left her [employer] usband 4 days ago, states he is controlling and is not supportive of her. Patient states she has a history of being on antidepressants, unknown what medication but denies any previous inpatient mental health treatment. Patient denies any hobbies and states she has nothing to look forward to in life. Petition filed for treatment r/t patient suicidal ideation with a plan and intent." Patient seen and evaluated in her room. She reports last Tuesday having worsening suicidal ideations that led her to start thinking about cutting herself with thoughts that no one will notice or miss her if she did. She mentions on reaching out to her mother and sister who helped her eventually move out of her house and ended with them. Ongoing stressors include issues with her of 5 years including infidelity and lack of support. She mentions transitioning from part-time to full-time job however given her depressive symptoms was struggling and thus she is in between jobs at the moment . She states yesterday going to her PCP who encouraged her to come to the ED given her worsening SI with plan. She reports predominant depressive symptoms including sleep and appetite changes, low energy, concentration and anhedonia. She reports anxiety described as generalized along with racing thoughts, feeling on edge. At this time patient denies any suicidal or homicidal ideations, intent or plan. Patient denies any auditory, visual hallucinations and denies any paranoia or delusions. Patients admits to using nicotine, vaping daily and smoking 1/2 pack/day." Patient was started on Cymbalta 30 mg. Patient seen and evaluated on the unit and was agreeable with speaking to proposal writer in office. She states experiencing a little bit of nausea overnight however that improved with Zofran. She denied any nausea today. She states she has not spoken to her ex and has no plans on doing so. She does report some sleep difficulties overnight. Patient denies any suicidal or homicidal ideations intent or plan. At this time patient denies any auditory or visual hallucinations. Patient denies any flight of ideas racing thoughts and increased in goal directed behavior. Spoke to patient's sister Sarah and addressed all questions/concerns. She denied any access to firearms at the home, stating her gun is locked up and out of sight. She will be able to pick patient up upon discharge.nicotine patch- Patient was counselled on substance abuse and desired to cut back on use medication consent adult voluntary form and voluntary Average has poor judgment and is going through a divorce from her resilient Poor There is no evidence of any delusional thought content and thought process is linear and goal-directed. and denies any auditory hallucinations Denies any suicidal ideations intent or plan depressed fluent and nonpressured. poor directable, and attempts to cooperate Patient denies any history of suicide attempts in the past. Patient denies any psychiatric outpatient follow-up. Patient denies any previous psychiatric hospitalizations. Patient denies being on any psychiatric medications. from Reglan PAST PSYCHIATRIC HISTORY: Patient has a history of depression, anxiety. [Patient denies being on any psychiatric medications.] She has tried Wellbutrin, Paxil, Zoloft, Ativan in the past. [Patient denies any previous psychiatric hospitalizations.] [Patient denies any psychiatric outpatient follow-up.] [Patient denies any history of suicide attempts in the past.] PMH: as per ER note ALLERGIES: as per EMR SUBSTANCE USE HISTORY: Patient reports smoking half a pack per day in addition to vaping nicotine. FAMILY PSYCHIATRIC/SUBSTANCE USE HISTORY: She states her daughter has bipolar disorder that her son abuses alcohol SOCIAL HISTORY: Patient was born and raised in [facility]. She is however recently left her of 5 years and moved in with her mother and sister. She has 3 children. She completed high school and is un employed. MENTAL STATUS EXAM: General Appearance: Patient appears to be [] stated age is alert, [directable, and attempts to cooperate]. Patient appears to have [poor] hygiene and grooming. Behavior: Patient is seated without any agitated behavior. [] Speech: Patient's speech is [fluent and nonpressured.] Mood/Affect: Patient reports their mood is [depressed], affect is congruent and constricted. Suicidality/Homicidality: Patient denies having any homicidal ideation intent or plan. [Denies any suicidal ideations intent or plan] Perceptions: Patient denies any visual hallucinations [and denies any auditory hallucinations] Though content/process: [There is no evidence of any delusional thought content and thought process is linear and goal-directed.] Memory and concentration: AOX3, grossly intact for the purposes of this session. Can spell "WORLD" backwards Judgment and insight: [poor] STRENGTHS/WEAKNESSES: strength is that patient is [resilient] and has a strong support network. Weakness is that patient [has poor judgment and is going through a divorce from her ] INTELLECT: [average] IMPRESSIONS: Major depressive disorder, recurrent, moderate Generalized anxiety disorder Nicotine dependence PLAN: -Patient is admitted under [voluntary] status to MHU for stabilization of psychiatric symptoms and safety. Patient has signed [adult voluntary form and] [medication consent] and is placed in patient's chart. -Medications : Continue Cymbalta 30 mg daily for depression/anxiety, melatonin 10 mg at bedtime, start trazodone 50 mg at bedtime for sleep -Hydroxyzine and Zyprexa PRN for agitation/aggression [-Patient was counselled on substance abuse and desired to cut back on use] -Patient was informed of the risks, benefits and side effects of the medication and patient verbally consented to taking the medications. Patient signed med consent form and was placed in chart. -Internal Medicine consult to perform medical evaluation and physical. -NRT - [nicotine patch] -SW on board for discharge planning. Encourage patient to participate in groups to work on coping skills. Anticipate discharge back home with mom/sister on Tuesday. []
[2024-05-10] MEDS: MAGNESIUM OXIDE 400 MG TAB PO SCH (20:21)
[2024-05-10] MEDS: traZODone HCL 50 MG TAB PO SCH (20:22)
[2024-05-10] MEDS: MELATONIN 5 MG TABLET PO SCH (20:22)
[2024-05-10] MEDS: TOPIRAMATE 25 MG TAB PO SCH (20:22)
[2024-05-11] MEDS: LORATADINE 10 MG TAB PO SCH (07:46)
[2024-05-11] MEDS: ATORVASTATIN 20 MG TAB PO SCH (07:46)
[2024-05-11] MEDS: DULoxetine HCL 60 MG CAPSULE.DR PO SCH (07:46)
[2024-05-11] MEDS: PANTOPRAZOLE 40 MG TABLET PO SCH (07:46)
[2024-05-11] MEDS: NICOTINE 21MG/24HR PATCH TRANSDERM SCH (07:47)
[2024-05-11 08:35] LABS: Chol/HDL Ratio 4.78 Ratio; LDL Cholesterol,Calculated 67.5 mg/dL (0.0-131.0)
[2024-05-11] MEDS ORDERED: DULoxetine HCL 30 MG CAPSULE.DR PO SCH (09:00)
[2024-05-11] MEDS ORDERED: OSELTAMIVIR 30 MG CAP PO SCH (11:45)
[2024-05-11] MEDS: OSELTAMIVIR 75 MG CAP PO SCH (12:18)
--- NOTE | 2024-05-11 12:37 | P.PN ---
Progress Note - Text Progress Note Date: 05/11/24 Interval History: Patient was seen in group and was directable and agreeable to speak with tag writer in the office. Patient appeared more bright in affect, expressing no concerns today. She mentions sleeping well overnight, denied any adverse effects. She states her sister dropped off some clothes for her to wear and reflected on how supportive her entire family including her sister has been. Patient has been active in groups, tending to ADLs. She denied any upper respiratory/viral symptoms including muscle aches, chills, congestion or sore throat. At this time patient denies any suicidal or homicidal ideations, intent or plan. Patient denies any auditory, visual hallucinations and denies any paranoia or delusions. Patient denies any side effects from the medications and has been compliant with meds. Mental Status Exam: General Appearance: Patient appears to be stated age is alert, directable, and cooperative. She wears glasses Behavior: Patient is calmly seated without any agitated behavior. Speech: Patient's speech is fluent and nonpressured. Mood/Affect: Mood is improving mildly, affect is congruent and full range. Suicidality/Homicidality: Patient denies having any suicidal or homicidal ideation intent or plan. Perceptions: Patient denies any visual hallucinations and denies any auditory hallucinations Though content/process: There is no evidence of any delusional thought content and thought process is linear and goal-directed. Memory and concentration: AOX3, grossly intact for the purposes of this session Judgment and insight: Improving mildly Assessment Major depressive disorder, recurrent, moderate Generalized anxiety disorder Nicotine dependence Plan: -Patient continues to meet criteria for inpatient psychiatric admission for symptom stabilization and safety. Patient has signed adult voluntary form and medication consent and was placed in patient's chart. -Medications: Increase Cymbalta to 60 mg daily today for depression/anxiety, continue melatonin 10 mg at bedtime, trazodone 50 mg at bedtime for insomnia -When necessary hydroxyzine and Zyprexa for agitation/aggression. -Labs: Reviewed -NRT -nicotine patch -SW on board for discharge planning. Encouraged the patient to participate in milieu. Anticipate discharge back home with family on Tuesday
--- NOTE | 2024-05-12 10:02 | P.PN ---
Progress Note - Text Progress Note Date: 05/12/24 Interval history: Patient was seen wandering the hallways and was directable and agreeable to s peak with appeals writer. Claims that she is doing a bit better today, states that her mood and anxiety been improving. Has been going to some groups eating fairly. Claims that she slept fairly last night. Did not report any issues with her medications at this time. At this time patient denies any suicidal or homicidal ideations intent or plan. Denies any Auditory or visual hallucinations. Patient denies any side effects from the medications and has been compliant with meds. Mental status exam: General Appearance: Patient appears to be shorter hair, wearing glasses, stated age is alert, directable, and cooperative. Behavior: No agitated behavior. Patient is calm and directable attempts to cooperate Speech: Patient's speech is fluent and nonpressured. Somewhat concrete Mood/Affect: Mood is improving mildly, affect is congruent and constricted. Suicidality/Homicidality: Patient denies having any suicidal or homicidal ideation intent or plan. Perceptions: Patient denies any auditory or visual hallucinations. Though content/process: There is no evidence of any delusional thought content and thought process is linear and goal-directed. More future oriented Memory and concentration: AOX3, grossly intact for the purposes of this session Judgment and insight: improving mildly Assessment/Plan: Continue with current diagnosis. Patient continues to meet criteria for inpatient psychiatric admission for symptom stabilization and safety. Patient will be maintained on current psychotropic medication regimen. Monitor for medication compliance and for any psychotropic medication side effects. Will continue to monitor ongoing response to treatment. Encouraged participation in milieu.
[2024-05-12] MEDS: SYMBICORT 160-4.5 MCG INHALER INHALATION SCH (12:15)
--- NOTE | 2024-05-13 05:42 | P.CONS ---
History of Present Illness - Reason for Consult Consult date: 05/13/24 - History of Present Illness The patient is a 58-year-old female with a PMH of COPD, history of DVT, hyperlipidemia, GERD, and migraines with presented emergency room with complaints of depression and suicidal ideation. The patient was initially admitted to the medicine service for influenza A infection and was subsequently cleared and transferred to the mental health unit where she was seen and evaluated. Patient notes that she had recently gotten from her which is causing a lot of mental strain for her. At the time of interview, the patient reports left lower extremity pain. Notes that the pain is similar to her prior episodes when she was diagnosed with DVT. She denied any additional complaints. Denied experiencing chest discomfort, shortness of breath, fever, chills, cough, nausea, vomiting, abdominal pain, diarrhea. She denies tobacco, illicit substance, or alcohol use. Review of systems: Pertinent positives and negatives as discussed in HPI, a complete review of systems was performed and all other systems are negative. Physical examination: General: non toxic, no distress, appears at stated age, normal weight Derm: no unusual rashes/lesions, no unusual ecchymoses, warm, dry Head: atraumatic, normocephalic, symmetric Eyes: EOMI, no lid lag, anicteric sclera ENT: Nose and ears atraumatic, no thrush, no pharyngeal erythema Neck: trachea midline, supple Mouth: no lip lesion, mucus membranes moist Cardiovascular: S1S2 reg, no murmur, no edema Lungs: CTA bilateral, no rhonchi, no rales , no accessory muscle use Abdominal: soft, nontender to palpation, no guarding Ext: no gross muscle atrophy, no contractures, mild left lower extremity lateral tenderness without obvious skin abnormalities Neuro: No gross focal neuro deficits noted Psych: Alert, oriented, appropriate affect Assessment: Left lower extremity pain, rule out DVT Chronic conditions: COPD, hyperlipidemia, GERD Depression and suicidal ideation Imaging: EKG is performed in the emergency room revealed sinus rhythm at [address]/T wave changes noted as reviewed by me. Data Review: Laboratory evaluation upon arrival initially at the emergency room revealed influenza type a positive Plan: Obtain lower extremity Doppler to rule out DVT Resume home medications including Lipitor, Trelegy, Protonix Defer management of depression and suicidal ideation to the primary psychiatrist Thank you for allowing us to participate in the care of this patient. We will follow peripherally. Do not hesitate to contact us with questions. Someone can be reached from the [facility] hospitalist group at all hours of the day at [phone]. Past Medical History Past Medical History: COPD, Deep Vein Thrombosis (DVT) Additional Past Medical History / Comment(s): ovarian cyst History of Any Multi-Drug Resistant Organisms: None Reported Past Surgical History: Section, Hysterectomy Additional Past Surgical History / Comment(s): bladder suspension Past Anesthesia/Blood Transfusion Reactions: No Reported Reaction Past Psychological History: No Psychological Hx Reported Smoking Status: Current every day smoker, Vaper Past Alcohol Use History: None Reported Past Drug Use History: None Reported Medications and Allergies Home Medications Medication Instructions Recorded Confirmed Type Atorvastatin [Lipitor] 20 mg PO DAILY 05/08/24 05/10/24 History Cetirizine HCl [Zyrtec] 10 mg PO DAILY 05/08/24 05/10/24 History EPINEPHrine (Auto Inject) [Epipen] 0.3 mg IM ONCE PRN 05/08/24 05/10/24 History Fluticasone/Umeclidin/Vilanter 1 puff INHALATION RT-DAILY 05/08/24 05/10/24 History [Trelegy Ellipta 200-62.5-25] Magnesium 250 mg PO HS 05/08/24 05/10/24 History Pantoprazole [Protonix] 40 mg PO DAILY 05/08/24 05/10/24 History Rizatriptan Benzoate 10 mg PO BID PRN 05/08/24 05/10/24 History Topiramate 50 mg PO BID 05/08/24 05/10/24 History DULoxetine HCL [Cymbalta] 30 mg PO DAILY cap 05/10/24 05/10/24 Rx Melatonin 10 mg PO HS tab 05/10/24 05/10/24 Rx Oseltamivir [Tamiflu] 30 mg PO Q12HR #8 cap 05/10/24 05/10/24 Rx Allergies Allergy/AdvReac Type Severity Reaction Status Date / Time bee venom protein (honey bee) Allergy Anaphylaxis Verified 05/08/24 20:46 metoclopramide [From Reglan] Allergy Unknown Verified 05/08/24 20:46 peanut Allergy Anaphylaxis Verified 05/08/24 20:46 Physical Exam Vitals: Vital Signs Temp Pulse Resp BP BP Pulse Ox 05/12/24 20:08 96.5 F L 106 H 12 106/73 94 L 05/12/24 09:05 97.1 F L 100 16 102/66 96
--- NOTE | 2024-05-13 09:00 | US ---
EXAMINATION TYPE: US venous doppler duplex LE BI DATE OF EXAM: 05/13/2024 8:53 AM COMPARISON: NONE CLINICAL INDICATION: Female, 58 years old with history of LLE pain, r/o DVT; Hx lt leg DVT, pain left calf, Pain TECHNIQUE: The lower extremity deep venous system is examined utilizing real time linear array sonog lokesh with graded compression, color doppler sonography, and spectral doppler. SIDE PERFORMED: Bilateral FINDINGS: VESSELS IMAGED: Common Femoral Vein Deep Femoral Vein Greater Saphenous Vein * Femoral Vein Popliteal Vein Small Saphenous Vein * Proximal Calf Veins (* superficial vessels) The deep venous systems of both lower extremities from the common femoral remains to the proximal lori f veins are patent and compressible with augmentable flow and with normal waveforms. IMPRESSION: No evidence of bilateral lower extremity DVT from the common femoral veins to the proximal calf veins [facility], Workstation: JOSE 05/13/2024 8:57 AM
--- NOTE | 2024-05-13 11:44 | P.PN ---
Progress Note - Text Progress Note Date: 05/13/24 Interval history: Patient was seen wandering the hallways and was directable and agreeable to s peak with movie writer. He was also noted earlier to be playing cards and activities with other patients. She states that she is doing a bit better today. Did not report any overnight complaint states that she is sleeping well. she states that her mood and anxiety been improving. Has been going to some groups eating fairly. Did not report any issues with her medications at this time, wants to stay on the same medications and doses. At this time patient denies any suicidal or homicidal ideations intent or plan. Denies any Auditory or visual hallucinations. Patient denies any side effects from the medications and has been compliant with meds. Mental status exam: General Appearance: Patient appears to be shorter hair, wearing glasses, stated age is alert, directable, and cooperative. Behavior: No agitated behavior. Patient is calm and directable attempts to cooperate Speech: Patient's speech is fluent and nonpressured. Improving Mood/Affect: Mood is improving mildly, affect is congruent and improving mildly Suicidality/Homicidality: Patient denies having any suicidal or homicidal ideation intent or plan. Perceptions: Patient denies any auditory or visual hallucinations. Though content/process: There is no evidence of any delusional thought content and thought process is linear and goal-directed. More future oriented Memory and concentration: AOX3, grossly intact for the purposes of this session Judgment and insight: improving mildly Assessment/Plan: Continue with current diagnosis. Patient continues to meet criteria for inpatient psychiatric admission for symptom stabilization and safety. Patient will be maintained on current psychotropic medication regimen. Monitor for medication compliance and for any psychotropic medication side effects. Will continue to monitor ongoing response to treatment. Encouraged participation in milieu.
[2024-05-14] MEDS: TIOTROPIUM 2.5 MCG INHALER INHALATION SCH (07:56)
[2024-05-14 10:15] VITALS: BP 81/55; PULSE 124; RESP 16; TEMP 97.1
--- NOTE | 2024-05-14 13:44 | P.DS ---
Providers Date of admission: 05/10/24 12:37 Expected date of discharge: 05/14/24 Attending physician: Janie Jane MD Consults: 05/10/24 09:50 Consult Physician Routine Consulting Provider: Misael Corrales Consult Reason/Comments: Medical managment Do you want consulting provider notified?: Yes Primary care physician: Stated None - Discharge Diagnosis(es) (1) Major depressive disorder, recurrent episode, moderate Status: Acute Priority: High (2) Generalized anxiety disorder Status: Acute Priority: Low (3) Nicotine dependence Status: Acute Priority: Low Hospital Course: Admission HPI: Admission note was completed by pattern chart writer "Patient presented to the hospital with suicidal ideations. Pin Ticket Machine Operator saw patient yesterday as a consult and the note is a s follows, "The patient presented to the hospital with SI. She was influenza A positive. EPS evaluation revealed, "Patient presented to ER with sister and mother. Patient presented at ER for suicidal ideation with plan to slit her wrists. Patient assessed in ER14 from [id number]. Patient assessed with sister and mother present per patient request. Patient states she came to ER after seeing her primary care physician Melodie Jane due to suicidal ideation. States she went to see her PCP for antidepressants but due to suicidal ideation with plan and intent, she was referred to ER. Patient states that she has had suicidal thoughts in the past that were minimal and easily controlled. Patient states that in the past 4 days she has had thoughts of suicide with plan and intention to act on her plan to slit her wrist or throat. Patient states that she felt like she could kill herself in her bathroom at night and no one would notice. Patient states she has been having increased stress due to her not being supportive and being controlling. 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 Patient states that she recently left her 4 days ago, states he is controlling and is not supportive of her. Patient states she has a history of being on antidepressants, unknown what medication but denies any previous inpatient mental health treatment. Patient denies any hobbies and states she has nothing to look forward to in life. Petition filed for treatment r/t patient suicidal ideation with a plan and intent." Patient seen and evaluated in her room. She reports last Tuesday having worsening suicidal ideations that led her to start thinking about cutting herself with thoughts that no one will notice or miss her if she did. She mentions on reaching out to her mother and sister who helped her eventually move out of her house and ended with them. Ongoing stressors include issues with her of 5 years including infidelity and lack of support. She mentions transitioning from part-time to full-time job however given her depressive symptoms was struggling and thus she is in between jobs at the moment. She states yesterday going to her PCP who encouraged her to come to the ED given her worsening SI with plan. She reports predominant depressive symptoms including sleep and appetite changes, low energy, concentration and anhedonia. She reports anxiety described as generalized along with racing thoughts, feeling on edge. At this time patient denies any suicidal or homicidal ideations, intent or plan. Patient denies any auditory, visual hallucinations and denies any paranoia or delusions. Patients admits to using nicotine, vaping daily and smoking 1/2 pack/day." Patient was started on Cymbalta 30 mg. Patient seen and evaluated on the unit and was agreeable with speaking to pattern chart writer in office. She states experiencing a little bit of nausea overnight however that improved with Zofran. She denied any nausea today. She states she has not spoken to her ex and has no plans on doing so. She does report some sleep difficulties overnight. Patient denies any suicidal or homicidal ideations intent or plan. At this time patient denies any auditory or visual hallucinations. Patient denies any flight of ideas racing thoughts and increased in goal directed behavior. Spoke to patient's sister Sarah and addressed all questions/concerns. She denied any access to firearms at the home, stating her gun is locked up and out of sight. She will be able to pick patient up upon discharge.nicotine patch-Patient was counselled on substance abuse and desired to cut back on use medication consent adult voluntary form and voluntary Average has poor judgment and is going through a divorce from her resilient Poor There is no evidence of any delusional thought content and thought process is linear and goal-directed. and denies any auditory hallucinations Denies any suicidal ideations intent or plan depressed fluent and nonpressured. poor directable, and attempts to cooperate Patient denies any history of suicide attempts in the past. Patient denies any psychiatric outpatient follow-up. Patient denies any previous psychiatric hospitalizations. Patient denies being on any psychiatric medications." Hospital course: Upon admission to the unit patient was directable and agreeable to commence treatment and signed adult voluntary form.. Patient got along well with other patients on the unit and followed unit protocol. Patient was compliant with the medications and denied any side effects throughout hospital course. Patient was started on Cymbalta and this was increased to 60 mg daily for depression/anxiety, melatonin 10 mg at bedtime for insomnia, trazodone 50 mg at bedtime for insomnia. Patient spoke of her stressors and engaged in therapy both group and individual. Patient was also seen by medical team for history and physical exam. She was started on Tamiflu given her influenza A positive however this was discontinued prior to discharge. Throughout the course of the hospitalization patient gradually improved with regards to mood, anxiety, sleep and returned back to their baseline level of functioning. On the day of discharge patient denied any suicidal or homicidal ideations intent or plan denied any auditory or visual hallucinations. The patient denied any access to guns or weapons. Patient denied any paranoia and did not endorse any delusions. Patient does not have a significant history of substance abuse and was counseled on abstaining from all substances including alcohol and marijuana. Patient was also counseled on the medications and need for regular compliance and was encouraged to follow-up with their outpatient appointment for mental health and also for primary care. Prior to discharge a family meeting will be arranged by social media marketer to answer any questions and ensure safety upon discharge including making sure that guns/weapons are either removed from the home or locked away. Patient to be discharged back home with mother and sister will follow-up with [facility] Mental status exam: General Appearance: Patient appears to be stated age is alert, pleasant, and cooperative. Patient is in no acute distress and has fair hygiene and grooming Behavior: Patient is calmly seated without any agitated behavior. Speech: Patient's speech is fluent and nonpressured. Mood/Affect: Patient reports their mood is "good", affect is congruent and euthymic. Suicidality/Homicidality: Patient denies having any suicidal or homicidal ideation intent or plan. Perceptions: Patient denies any auditory or visual hallucinations. Though content/process: There is no evidence of any delusional thought content and thought process is linear and goal-directed. Memory and concentration: AOX3, grossly intact for the purposes of this session. Can spell "WORLD" backwards correctly. Judgment and insight: Good Impression: Major depressive disorder, recurrent, moderate Generalized anxiety disorder Nicotine dependence Plan: -Continue with discharge today as patient has improved and stabilized psychiatrically and is not currently an imminent threat to themself and/or others. -Continue medications: Cymbalta 60 mg daily, trazodone 50 mg at bedtime PRN -Patient was counseled on the need for medication compliance and appropriate follow-up at mental health and also primary care for medical issues. Patient verbalized understanding and agreed. -Social work to help coordinate patients discharge today arrange for and conduct family meeting to ensure safety upon discharge and answer any questions/concerns. also to ensure safe home environment that guns/weapons are either removed from the home or locked away. Social work also to arrange for patients follow up appointments with [facility] for psychiatric care along with follow up with primary care provider. -Patient counseled on abstaining from recreational drugs and marijuana and alcohol. Was informed/educated on the adverse effects on their physical and mental health. Patient verbally agreed and understood. -Patient was instructed to return to the hospital or seek immediate medical care if their psychiatric or medical symptoms do worsen or reoccur. Abnormal Labs 05/08/24 20:45 HDL Cholesterol 24.90 L Vital Signs Temp 97.1 F L 05/14/24 10:14 Pulse 124 H 05/14/24 10:14 Resp 16 05/14/24 10:14 BP 81/55 05/14/24 10:14 Pulse Ox 96 05/14/24 10:14 FiO2 Intake & Output 05/13/24 05/14/24 05/14/24 18:59 06:59 18:59 Weight 64.229 kg Allergies Allergy/AdvReac Type Severity Reaction Status Date / Time bee venom protein (honey bee) Allergy Anaphylaxis Verified 05/08/24 20:46 metoclopramide [From Reglan] Allergy Unknown Verified 05/08/24 20:46 peanut Allergy Anaphylaxis Verified 05/08/24 20:46 Patient Condition at Discharge: Stable Plan - Discharge Summary Discharge Rx Participant: No New Discharge Prescriptions: New traZODone HCL [Desyrel] 50 mg PO HS 30 Days #30 tab Magnesium Oxide [Mag-Ox] 400 mg PO HS tab Pantoprazole [Protonix] 40 mg PO DAILY tab Tiotropium 2.5 Mcg/Puff [Spiriva Respimat 2.5 Mcg] 2 puff INHALATION RT-DAILY each Budesonide-Formot 160-4.5 Mcg [Symbicort 160-4.5 Mcg Inhaler] 2 puff INHALATION RT-BID each DULoxetine HCL [Cymbalta] 60 mg PO DAILY 30 Days #30 cap Nicotine 21Mg/24Hr Patch [Habitrol] 1 patch TRANSDERM DAILY patch Continue Atorvastatin [Lipitor] 20 mg PO DAILY Topiramate 50 mg PO BID Cetirizine HCl [Zyrtec] 10 mg PO DAILY Discontinued Rizatriptan Benzoate 10 mg PO BID PRN PRN Reason: Migraine Headache Magnesium 250 mg PO HS DULoxetine HCL [Cymbalta] 30 mg PO DAILY cap Melatonin 10 mg PO HS tab Pantoprazole [Protonix] 40 mg PO DAILY Fluticasone/Umeclidin/Vilanter [Trelegy Ellipta 200-62.5-25] 1 puff INHALATION RT-DAILY EPINEPHrine (Auto Inject) [Epipen] 0.3 mg IM ONCE PRN PRN Reason: Anaphylaxis Oseltamivir [Tamiflu] 30 mg PO Q12HR #8 cap Discharge Medication List Atorvastatin [Lipitor] 20 mg PO DAILY 05/08/24 [History] Cetirizine HCl [Zyrtec] 10 mg PO DAILY 05/08/24 [History] Topiramate 50 mg PO BID 05/08/24 [History] Budesonide-Formot 160-4.5 Mcg [Symbicort 160-4.5 Mcg Inhaler] 2 puff INHALATION RT-BID each 05/14/24 [Rx] DULoxetine HCL [Cymbalta] 60 mg PO DAILY 30 Days #30 cap 05/14/24 [Rx] Magnesium Oxide [Mag-Ox] 400 mg PO HS tab 05/14/24 [Rx] Nicotine 21Mg/24Hr Patch [Habitrol] 1 patch TRANSDERM DAILY patch 05/14/24 [Rx] Pantoprazole [Protonix] 40 mg PO DAILY tab 05/14/24 [Rx] Tiotropium 2.5 Mcg/Puff [Spiriva Respimat 2.5 Mcg] 2 puff INHALATION RT-DAILY each 05/14/24 [Rx] traZODone HCL [Desyrel] 50 mg PO HS 30 Days #30 tab 05/14/24 [Rx] Follow up Appointment(s)/Referral(s): [facility] [Other] - 05/17/24 12:30 pm (Joyce Reed 05/17 @ 12:30 virtual please check for email with ZOOM instructions ) [facility] [NON-STAFF] - 1 Week Patient Instructions/Handouts: How to Stop Smoking (DC), Depression (DC), Generalized Anxiety Disorder (GEN) Activity/Diet/Wound Care/Special Instructions: [facility] Discharge Info Avoid the use of street drugs and alcohol. Take all medications as prescribed. When you are in need of refills on your medications, please contact your outpatient medical provider and/or outpatient psychiatrist. Please go to your scheduled outpatient appointments for aftercare treatment. If symptoms return or become worse, call the crisis line at or and/or visit the nearest emergency room for assistance. National Suicide and Crisis Lifeline - call or text 363 Discharge Disposition: HOME SELF-CARE
== END 2024-05-14 11:56 | disposition home or self-care (01) | DRG 885 ==
LOC: 3MHU 12:37
PROVIDERS: ADMIT Psychiatry & Neurology Psychiatry; ATTEND Psychiatry & Neurology Psychiatry
DX: F33.1 Major depressive disorder, recurrent, moderate (principal); R45.851 Suicidal ideations; J44.9 Chronic obstructive pulmonary disease, unspecified; F17.210 Nicotine dependence, cigarettes, uncomplicated; F41.1 Generalized anxiety disorder; F17.290 Nicotine dependence, other tobacco product, uncomplicated; J10.1 Influenza due to other identified influenza virus with other respiratory manifestations; Z86.718 Personal history of other venous thrombosis and embolism; K21.9 Gastro-esophageal reflux disease without esophagitis; M79.605 Pain in left leg; E78.5 Hyperlipidemia, unspecified; Z88.8 Allergy status to other drugs, medicaments and biological substances; Z91.030 Bee allergy status; Z91.010 Allergy to peanuts; Z56.0 Unemployment, unspecified; Z63.5 Disruption of family by separation and divorce; Z79.899 Other long term (current) drug therapy; Z90.710 Acquired absence of both cervix and uterus
CPT/HCPCS: 80061; 83036; 84443; 93970